=== PATIENT | female | born 1990 | race American Indian/Alaskan Native ===

== ENCOUNTER 2018-10-09 13:54 | Emergency (ER) | payer OTHER ==
[2018-10-09 14:47] LABS: Basophils # (Auto) 0.1 K/mm3 (0.0-0.1); Basophils % (Auto) 0.9 % (0.0-1.8); Eosinophils # (Auto) 0.1 K/mm3 (0.0-0.4); Eosinophils % (Auto) 1.5 % (0.0-4.3); Hematocrit 42.3 % (30.3-42.9); Hemoglobin 14.1 gm/dl (10.1-14.3); Lymphocytes # (Auto) 2.6 K/mm3 (1.2-5.4); Lymphocytes % (Auto) 34.1 % (13.4-35.0); Mean Corpuscular HGB Conc 33 % (30-34); Mean Corpuscular Volume 92 fl (79-97); Monocytes # (Auto) 0.5 K/mm3 (0.0-0.8); Monocytes % (Auto) 7.2 % (0.0-7.3); Platelet Count 271 K/mm3 (140-440); Red Blood Count 4.62 M/mm3 (3.65-5.03); Red Cell Distribution Width 13.9 % (13.2-15.2)
[2018-10-09 15:17] LABS: Alanine Aminotransferase 20 units/L (7-56); BUN/Creatinine Ratio 10; Blood Urea Nitrogen 9 mg/dL (7-17); Calcium 9.3 mg/dL (8.4-10.2); Hemolysis Index 10
[2018-10-09 15:23] LABS: Bilirubin,Direct < 0.2 mg/dL (0-0.2)
[2018-10-09 16:55] VITALS: BP 100/61
[2018-10-09 17:32] LABS: HCG Qualitative,Urine Negative (Negative)
[2018-10-09 17:34] LABS: Bilirubin,Urine NEG (Negative); Blood,Urine LG (Negative); Color,Urine Yellow (Yellow); Mucus,Urine 1+ /HPF; Protein,Urine <15 mg/dL mg/dL (Negative); Urobilinogen,Urine < 2.0 mg/dL (<2.0)
[2018-10-09] MEDS ORDERED: ZOFRAN ODT PO ONE (17:35)
[2018-10-09] MEDS ORDERED: IBUPROFEN PO ONE (17:35)
--- NOTE | 2018-10-09 17:52 | Emergency Department Report ---
ED General Adult HPI - General Chief complaint: Nausea/Vomiting/Diarrhea Stated complaint: NAUSEA/BACK PAIN Time Seen by Provider: 10/09/18 17:07 Source: patient Mode of arrival: Ambulatory Limitations: No Limitations - History of Present Illness Initial comments: Pt is a 28 yo female who presents to the ED with c/o middle back pain that began 5 days ago. She states she does lift her heavy son frequently. She denies any fall, injury, or trauma. She denies any numbness or weakness. The patient states she has experienced once previously when she was constipated but states she has had normal BM yesterday. The patient also states she had one episode of nausea and vomiting today. She is able to tolerate water. She denies any abdominal pain, urinary frequency, dysuria, vaginal discharge, diarrhea, or any other sx. She is on depo provera for control. Severity scale (0 -10): 7 - Related Data Previous Rx's Medication Instructions Recorded Last Taken Type Cyclobenzaprine [Flexeril] 10 mg PO QHS PRN #10 tablet 10/09/18 Unknown Rx Ibuprofen 800 mg PO Q6HR PRN #20 tablet 10/09/18 Unknown Rx Polyethylene Glycol 3350 [Miralax] 119 gm PO DAILY PRN #1 powder 10/09/18 Unknown Rx Promethazine [Phenergan] 25 mg SD Q6HR PRN #10 supp.rect 10/09/18 Unknown Rx Allergies Allergy/AdvReac Type Severity Reaction Status Date / Time No Known Allergies Allergy Unverified 10/09/18 13:56 ED Review of Systems ROS: Stated complaint: NAUSEA/BACK PAIN Other details as noted in HPI Comment: All other systems reviewed and negative ED Past Medical Hx - Past Medical History Previous Medical History?: No - Surgical History Past Surgical History?: No - Social History Smoking Status: Never Smoker Substance Use Type: Marijuana - Medications Home Medications: Home Medications Medication Instructions Recorded Confirmed Last Taken Type Cyclobenzaprine [Flexeril] 10 mg PO QHS PRN #10 tablet 10/09/18 Unknown Rx Ibuprofen 800 mg PO Q6HR PRN #20 tablet 10/09/18 Unknown Rx Polyethylene Glycol 3350 [Miralax] 119 gm PO DAILY PRN #1 powder 10/09/18 Unknown Rx Promethazine [Phenergan] 25 mg SD Q6HR PRN #10 supp.rect 10/09/18 Unknown Rx ED Physical Exam - General Limitations: No Limitations General appearance: alert, in no apparent distress - Head Head exam: Present: atraumatic, normocephalic - Eye Eye exam: Present: normal appearance - ENT ENT exam: Present: mucous membranes moist - Respiratory Respiratory exam: Present: normal lung sounds bilaterally. Absent: respiratory distress, wheezes, rales, rhonchi, stridor, chest wall tenderness, accessory muscle use, decreased breath sounds, prolonged expiratory - Cardiovascular Cardiovascular Exam: Present: regular rate, normal rhythm, normal heart sounds. Absent: systolic murmur, rubs, gallop - GI/Abdominal GI/Abdominal exam: Present: soft, normal bowel sounds. Absent: distended, tenderness, guarding, rebound, rigid, mass, pulsatile mass, hernia - Back Exam Back exam: Present: normal inspection, full ROM, paraspinal tenderness (mild t- spine paraspinal muscular TTP bilaterally, no C-spine, T-spine, L-spine midline tenderness, no step offs, no deformity). Absent: CVA tenderness (R), CVA tenderness (L), vertebral tenderness - Neurological Exam Neurological exam: Present: alert, oriented X3, CN II-XII intact, normal gait. Absent: motor sensory deficit - Psychiatric Psychiatric exam: Present: normal affect, normal mood - Skin Skin exam: Present: warm, dry, intact ED Course Vital Signs 10/09/18 10/09/18 10/09/18 14:04 16:53 18:01 Temperature 98.8 F 98.3 F Pulse Rate 66 58 L Respiratory 16 16 17 Rate Blood Pressure 108/66 Blood Pressure 100/61 [Left] O2 Sat by Pulse 100 100 Oximetry ED Medical Decision Making - Lab Data Result diagrams: 10/09/18 14:29 10/09/18 14:29 Laboratory Results - last 24 hr 10/09/18 10/09/18 10/09/18 14:29 14:29 16:57 WBC 7.5 RBC 4.62 Hgb 14.1 Hct 42.3 MCV 92 MCH 31 MCHC 33 RDW 13.9 Plt Count 271 Lymph % (Auto) 34.1 [place] % (Auto) 7.2 Eos % (Auto) 1.5 Baso % (Auto) 0.9 Lymph # 2.6 [place] # 0.5 Eos # 0.1 Baso # 0.1 Seg Neutrophils % 56.3 Seg Neutrophils # 4.2 Sodium 141 Potassium 4.2 Chloride 104.9 Carbon Dioxide 23 Anion Gap 17 BUN 9 Creatinine 0.9 Estimated GFR > 60 BUN/Creatinine Ratio 10 Glucose 93 Calcium 9.3 Total Bilirubin 0.50 Direct Bilirubin < 0.2 Indirect Bilirubin 0.3 AST 21 ALT 20 Alkaline Phosphatase 116 Total Protein 7.4 Albumin 4.0 Albumin/Globulin Ratio 1.2 Lipase 12 L Urine Color Yellow Urine Turbidity Clear Urine pH 5.0 Ur Specific [place] 1.025 Urine Protein <15 mg/dl Urine Glucose (UA) Neg Urine Ketones Neg Urine Blood Lg Urine Nitrite Neg Ur Reducing Substances Not Reportable Urine Bilirubin Neg Urine Ictotest Not Reportable Urine Urobilinogen < 2.0 Ur Leukocyte Esterase Neg Urine WBC (Auto) 1.0 Urine RBC (Auto) 6.0 U Epithel Cells (Auto) 2.0 Urine Mucus 1+ Urine HCG, Qual Negative - Medical Decision Making Pt is a 28 yo female who presents to the ED with c/o middle back pain that began 5 days ago. She states she does lift her heavy son frequently. She denies any fall, injury, or trauma. She denies any numbness or weakness. The patient states she has experienced once previously when she was constipated but states she has had normal BM yesterday. No midline T-spine tenderness, mild bilateral T-spine paraspinal muscular tenderness. Examination consistent with muscle strain most likely from frequently picking up her son. Will give anti-inflammatory and muscle relaxer. Discussed only to take the muscle relaxer at night as needed and do not drive or operate heavy machinery. Will also prescribe miralax for co nstipation. Pt has normal bowel sounds, no abd tenderness, no CVAT, no fever, no urinary sx. labs all WNL. VSS. UA is normal urine preg is negative. The patient also states she had one episode of nausea and vomiting today. She is able to tolerate water. She denies any abdominal pain, urinary frequency, dysuria, vaginal discharge, diarrhea, or any other sx. She is on depo provera for control. She states she has used zofran before and it does not help with her sx. Will give pt phenergan suppository. Advised pt to continue to drink plenty of fluids and eat a bland diet. Discussed with patient specific details on need to return to the ED for any new or worsening symptoms. Advised to follow up with PCP in the next 2-3 days. Pt is not dehydrated, mucus membranes moist, pt states tolerating water. - Differential Diagnosis Gastroenteritis, Viral syndrome, UTI, Muscle strain, Pyelo Critical care attestation.: If time is entered above; I have spent that time in minutes in the direct care of this critically ill patient, excluding procedure time. ED Disposition Clinical Impression: Muscle strain Nausea & vomiting Qualifiers: Vomiting type: unspecified Vomiting Intractability: non-intractable Qualified Code(s): R11.2 - Nausea with vomiting, unspecified Disposition: - TO HOME OR SELFCARE Is pt being admited?: No Does the pt Need Aspirin: No Condition: Stable Instructions: Muscle Strain (ED), Acute Nausea and Vomiting (ED) Additional Instructions: Follow up with your primary care doctor in the next 2-3 days. Take medication as prescribed. Only take muscle relaxer at night as needed and do not take while driving or operating heavy machinery. Return to the emergency room for any new or worsening symptoms. Continue to drink plenty of fluids and eat a bland diet. Prescriptions: Cyclobenzaprine [Flexeril] 10 mg PO QHS PRN #10 tablet PRN Reason: Muscle Spasm Ibuprofen 800 mg PO Q6HR PRN #20 tablet PRN Reason: Pain, Moderate (4-6) Polyethylene Glycol 3350 [Miralax] 119 gm PO DAILY PRN #1 powder PRN Reason: Constipation Promethazine [Phenergan] 25 mg SD Q6HR PRN #10 supp.rect PRN Reason: Nausea And Vomiting Referrals: SHAHID SEGURA MD [Primary Care Provider] - 2-3 Days Time of Disposition: 17:54 Print Language: BANGLADES[place]
== END 2018-10-09 18:18 | disposition home or self-care (01) ==
LOC: ED 13:54
DX: S29.012A Strain of muscle and tendon of back wall of thorax, initial encounter (principal); R11.2 Nausea with vomiting, unspecified; F12.10 Cannabis abuse, uncomplicated; X50.0XXA Overexertion from strenuous movement or load, initial encounter; Y93.89 Activity, other specified; Y92.89 Other specified places as the place of occurrence of the external cause; Y99.8 Other external cause status
CPT/HCPCS: 36415; 80048; 80076; 81001; 81025; 83690; 85025; Q0162